=== PATIENT | female | born 1995 | race African-American/Black ===

== ENCOUNTER 2017-09-21 15:20 | Emergency (ER) | payer OTHER ==
[~2017-09-21] VITALS: Ht 180.3 cm; Wt 65.8 kg
[2017-09-21 15:23] VITALS: BP 123/83
[2017-09-21] MEDS ORDERED: TAMIFLU75 MG ORAL (15:50)
[2017-09-21] MEDS ORDERED: IBUPROFEN600 MG ORAL (15:50)
[2017-09-21] MEDS ORDERED: TESSALON PERLE100 MG ORAL (15:50)
--- NOTE | 2017-09-21 16:04 | Emergency Room Report ---
History of Present Illness General Chief Complaint: Flu Like Symptoms Source: Patient Present Illness HPI 22-year-old female no significant past medical history p/w subjective fevers chills, cough, runny nose cough for 2 days. Pt states cough is productive, with clear non bloody sputum. + runny nose or myalgias.+sick contacts . no recent travel. Patient does not smoke. She has been eating and drinking normally Allergies: Coded Allergies: No Known Allergies (Unverified , 09/21/17) Patient History Past Medical History: see triage record Past Surgical History: none Pertinent Family History: none Last Menstrual Period: 08/10/18 Reviewed Nursing Documentation: PMH: Agreed, PSxH: Agreed Nursing Documentation-PMH Past Medical History: No Stated History Review of Systems All Other Systems: negative except mentioned in HPI Physical Exam Vital Signs Date Time Temp Pulse Resp B/P (MAP) Pulse Ox O2 Delivery O2 Flow Rate FiO2 09/21/17 15:23 99.1 18 123/83 99 Room Air 09/21/17 15:23 98 Sp02 EP Interpretation: reviewed, normal General Appearance: normal inspection, well appearing, no apparent distress, alert, GCS 15, non-toxic Head: normocephalic, atraumatic Eyes: bilateral eye normal inspection, bilateral eye PERRL, bilateral eye EOMI ENT: normal ENT inspection, normal pharynx, normal voice, moist mucus membranes Neck: normal inspection, full range of motion, supple Respiratory: normal inspection, lungs clear, normal breath sounds, no respiratory distress, no retraction, no wheezing, speaking full sentences, chest symmetrical Cardiovascular #1: normal inspection, regular rate, rhythm, no edema, normal capillary refill Cardiovascular #2: 2+ radial (R), 2+ radial (L) Gastrointestinal: normal inspection, non tender, soft, non-distended, no guarding Musculoskeletal: normal inspection, back normal, normal range of motion, non- tender Neurologic: normal inspection, alert, oriented x3, responsive, motor strength/ tone normal, sensory intact, normal gait, speech normal Psychiatric: normal inspection, judgement/insight normal, memory normal Skin: normal inspection, normal color, no rash, warm/dry, well hydrated, normal turgor Medical Decision Making Diagnostic Impression: Primary Impression: Influenza-like symptoms ER Course 22-year-old female, fever chills cough runny nose Appears nontoxic, well-hydrated DDX: Viral URI Plan: None required an emergency room ER course: Patient remains nontoxic, not in resp distress. Disposition: Patient is to be discharged home with a prescription of Tessalon Perles, Tamiflu , Motrin Strict precautions discussed with patient on when to return to the emergency room including hemoptysis, high fevers, chills, SOB, chest pain which may indicate severe illness. Patient is to follow up with their primary care doctor within 5 days. Patient agrees with plan. Please note that this Emergency Department Report was dictated using [employer] bundle worker technology software, occasionally this can lead to erroneous entry secondary to interpretation by the dictation equipment Last Vital Signs Date Time Temp Pulse Resp B/P (MAP) Pulse Ox O2 Delivery O2 Flow Rate FiO2 09/21/17 15:42 92 18 Room Air 09/21/17 15:23 99.1 123/83 99 Disposition: HOME, SELF-CARE Condition: Stable Scripts Ibuprofen* (MOTRIN*) 600 Mg Tablet 600 MG ORAL Q8H Y for For Pain, #30 TAB 0 Refills Prov: Leonardo Mg M.D. 09/21/17 Oseltamivir Phosphate (Tamiflu) 75 Mg Capsule 75 MG ORAL TWICE A DAY for 5 Days, #10 CAP Prov: Leonardo Mg M.D. 09/21/17 Benzonatate* (TESSALON PERLE*) 100 Mg Capsule 100 MG ORAL THREE TIMES A DAY for 5 Days, #15 PERLE 0 Refills Prov: Leonardo Mg M.D. 09/21/17 Patient Instructions: Viral Respiratory Infection, [id number] Leonardo Mg M.D. Sep 21, 2017 16:04
[2017-09-21 16:16] VITALS: BP 123/83
== END 2017-09-21 16:16 | disposition home or self-care (01) ==
LOC: EMR 15:41
DX: J11.1 Influenza due to unidentified influenza virus with other respiratory manifestations (principal)
CPT/HCPCS: 99284

== ENCOUNTER 2017-09-26 15:20 | Emergency (ER) | payer OTHER ==
[~2017-09-26] VITALS: Ht 180.3 cm; Wt 65.8 kg
[~2017-09-26 15:20] MED LIST: IBUPROFEN600 MG ORAL; TAMIFLU75 MG ORAL; TESSALON PERLE100 MG ORAL
--- NOTE | 2017-09-26 16:13 | Emergency Room Report ---
History of Present Illness General Chief Complaint: General Complaint Source: Patient Present Illness HPI 22 yo female patient presents to ER complaining of 2 hour history of face pain "that moves around the left side of her face". Patient states her symptoms have improved since arrival at ER. Patient states she would like to know what could cause this pain. Patient reports recent history of flu symptoms treated with Tamiflu and OTC medications. Patient reports a history of sinus problems. Patient denies sore throat, difficulty eating, difficulty speaking, hearing loss , vision changes. Patient denies fever, nausea, vomiting, SOB. Allergies: Coded Allergies: No Known Allergies (Unverified , 09/21/17) Patient History Past Medical History: see triage record Social History: Denies: smoking, alcohol use, drug use Last Menstrual Period: 08/10/2018 Immunizations: UTD Reviewed Nursing Documentation: PMH: Agreed, PSxH: Agreed Nursing Documentation-PMH Past Medical History: No Stated History Review of Systems All Other Systems: negative except mentioned in HPI Physical Exam Vital Signs Date Time Temp Pulse Resp B/P (MAP) Pulse Ox O2 Delivery O2 Flow Rate FiO2 09/26/17 15:57 99.3 84 14 123/77 99 Room Air Sp02 EP Interpretation: reviewed, normal General Appearance: no apparent distress, alert, GCS 15, non-toxic Head: normocephalic, atraumatic, other - bilateral forehead wrinkles Eyes: bilateral eye normal inspection, bilateral eye PERRL, bilateral eye EOMI ENT: hearing grossly normal, normal pharynx, no angioedema, normal voice, TMs + canals normal, uvula midline, moist mucus membranes, other - TTP over right maxillary sinus Neck: full range of motion, supple/symm/no masses Respiratory: chest non-tender, lungs clear, normal breath sounds, speaking full sentences Cardiovascular #1: regular rate, rhythm, no edema Musculoskeletal: back normal, gait/station normal, normal range of motion, non- tender Neurologic: alert, oriented x3, responsive, human relations teacher III-XII nml as tested, motor strength/tone normal, sensory intact, speech normal Psychiatric: mood/affect normal Skin: normal color, no rash, warm/dry, well hydrated Lymphatic: no adenopathy Medical Decision Making PA Attestation Dr. Vera is my supervising physician with whom patient management has been discussed with. Diagnostic Impression: Primary Impression: Numbness and tingling of left side of face ER Course Pt presents to ED c/o pain and numbness on left side of face. DDX considered but are not limited to s influenza, viral URI, pneumonia, tooth pain, strep throat, rhinitis, sinusitis, otitis media, Reaves's Palsy, TIA. VITAL SIGNS are WNL, patient is afebrile. ORDERS: None required at this time, diagnosis is clinical. ED INTERVENTIONS: none required at this time DISCHARGE: At this time pt is stable for d/c to home. Patient reports being in no acute distress currently. Patient will be treated for probable sinus congestion and patient agrees with treatment plan. -Rx given for Motrin/Ibuprofen for fever/pain. -Rx given for Claritin-D for sinus congestion. Patient to take medications as instructed. Patient instructed to continue use of OTC medications at home for flu-like symptoms. Will provide with patient care instructions and any necessary prescriptions. Care plan and follow-up instructions provided. Patient instructed to follow-up with primary care provider in 3 - 5 days and discuss follow-up with dentist for any tooth pain. Patient questions asked and answered. ER precautions given. Patient instructed to return to ER immediately for any new or worsening of symptoms including but not limited to fever, facial weakness , difficulty speaking, difficulty breathing, difficulty swallowing. Last Vital Signs Date Time Temp Pulse Resp B/P (MAP) Pulse Ox O2 Delivery O2 Flow Rate FiO2 09/26/17 15:57 99.3 84 14 123/77 99 Room Air Disposition: HOME, SELF-CARE Condition: Stable Scripts Ibuprofen* (MOTRIN*) 600 Mg Tablet 600 MG ORAL Q6H Y for For Pain, #30 TAB Prov: Mike Nance 09/26/17 Loratadine/Pseudoephedrine (CLARITIN-D 12 HOUR TABLET) 1 Each Tab.er.12h 1 TAB ORAL EVERY 12 HOURS for 7 Days, #14 TAB Prov: Mike Nance 09/26/17 Patient Instructions: Sinus Headache, [id number] Additional Instructions: Patient to take medications as instructed Will provide with patient care instructions and any necessary prescriptions. Care plan and follow-up instructions provided. Patient instructed to follow-up with primary care provider in 3 5 days. Patient questions asked and answered. ER precautions given. Patient instructed to return to ER immediately for any new or worsening of symptoms including but not limited to increasing SOB, persistent fever. Mike Nance Sep 26, 2017 16:13
[2017-09-26] MEDS ORDERED: CLARITIN-D 121 EAC1 ORAL (16:19)
[2017-09-26] MEDS ORDERED: IBUPROFEN600 MG ORAL (16:20)
[2017-09-26 16:29] VITALS: BP 125/73
== END 2017-09-26 16:30 | disposition home or self-care (01) ==
LOC: EMR 16:16
DX: R20.0 Anesthesia of skin (principal); R20.2 Paresthesia of skin; R51 Headache
CPT/HCPCS: 99283

== ENCOUNTER 2019-02-22 11:31 | Emergency (ER) | payer SELFPAY ==
[~2019-02-22] VITALS: Ht 177.8 cm; Wt 71.2 kg
[~2019-02-22 11:31] MED LIST changes: +CLARITIN-D 121 EAC1 ORAL
[2019-02-22 11:36] VITALS: BP 125/71
[2019-02-22] MEDS ORDERED: NKM (11:39)
[2019-02-22] MEDS ORDERED: ZITHROMAX250 MG ORAL (12:33)
[2019-02-22 12:37] VITALS: BP 132/70
--- NOTE | 2019-02-22 12:37 | NUR ---
ER DISCHARGE NOTE: Pt was seen due to sore throat. Patient is cleared to be discharged per ERMD, pt is aox4, on room air, with stable vital signs. pt was given dc and prescription instructions, pt was able to verbalize understanding, pt id band removed. pt is able to ambulate with steady gait. pt took all belongings.
== END 2019-02-22 12:37 | disposition home or self-care (01) ==
LOC: EMR 12:13
DX: R07.0 Pain in throat (principal); J02.9 Acute pharyngitis, unspecified
CPT/HCPCS: 99281